=== PATIENT | male | born 1980 | race Caucasian/White ===

== ENCOUNTER 2025-03-30 07:33 | Day surgery (SDC) | payer BC ==
[2025-03-27 12:49] VITALS: BMI 33.7
[2025-03-30] MEDS ORDERED: PROPOFOL 40 ML ONE (09:05)
[2025-03-30] MEDS ORDERED: Lidocaine 1% PF 5 ML VIAL ONE (09:06)
[2025-03-30] MEDS ORDERED: GLYCOPYRROLATE/PF 0.2 MG/ML VIAL ONE (09:58)
[2025-03-30] MEDS ORDERED: PROPOFOL 200 MG/20 ML VIAL ONE (09:59)
[2025-03-30] MEDS ORDERED: PROPOFOL 20 ML ONE (10:13)
== END 2025-03-30 11:10 | disposition home or self-care (01) ==
LOC: SDC 07:33
PROVIDERS: ATTEND Internal Medicine Gastroenterology
PROC: 0DBN8ZZ Excision of Sigmoid Colon, Via Natural or Artificial Opening Endoscopic (ICD-10-PCS; principal; 2025-03-30)
DX: Z12.11 Encounter for screening for malignant neoplasm of colon (principal); D12.5 Benign neoplasm of sigmoid colon; K57.30 Diverticulosis of large intestine without perforation or abscess without bleeding; R19.5 Other fecal abnormalities; I10 Essential (primary) hypertension; E11.9 Type 2 diabetes mellitus without complications; E78.5 Hyperlipidemia, unspecified; K21.9 Gastro-esophageal reflux disease without esophagitis; M10.9 Gout, unspecified; G47.30 Sleep apnea, unspecified; F17.210 Nicotine dependence, cigarettes, uncomplicated; Z98.890 Other specified postprocedural states; Z79.84 Long term (current) use of oral hypoglycemic drugs; Z79.85 Long-term (current) use of injectable non-insulin antidiabetic drugs; Z79.899 Other long term (current) drug therapy
CPT/HCPCS: 88305; J2704; J3490